=== PATIENT | female | born 2000 | race Caucasian/White ===

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

== ENCOUNTER → 2018-02-21 | Outpatient (REF) | payer OTHER ==
[2018-02-21 22:32] LABS: CHLAMYDIA DNA AMPLIFICATION NEGATIVE (NEGATIVE); GC DNA AMPLIFICATION NEGATIVE (NEGATIVE)
== END ==
LOC: M SFHCLERA 16:31
DX: R30.0 Dysuria (principal); N89.8 Other specified noninflammatory disorders of vagina

== ENCOUNTER 2019-02-25 22:08 | Emergency (ER) | payer OTHER ==
[~2019-02-25] VITALS: Ht 170.2 cm; Wt 72.7 kg
[2019-02-25 22:08] VITALS: BP 137/87
[~2019-02-25 22:08] MED LIST: CLINDAMYCIN; COLA100C5 PO; FLUC150T; MIRA3350 PO
== END 2019-02-26 00:02 | disposition home or self-care (01) ==
LOC: M ED 22:08
DX: S01.511A Laceration without foreign body of lip, initial encounter (principal); W51.XXXA Accidental striking against or bumped into by another person, initial encounter; Y92.099 Unspecified place in other non-institutional residence as the place of occurrence of the external cause; Y93.9 Activity, unspecified; Y99.9 Unspecified external cause status; Z88.0 Allergy status to penicillin

== ENCOUNTER 2019-03-04 02:53 | Day surgery (SDC) | payer OTHER ==
[~2019-03-04] VITALS: Ht 172.7 cm; Wt 72.7 kg
[2019-03-04 03:50] LABS: BASO # 0.1 10^3/uL (0.0-0.2); BASO % 0.3 % (0.0-1.0); EOS # 0.3 10^3/uL (0.0-0.5); EOS % 1.6 % (0.0-3.0); HEMATOCRIT 41.3 % (36.0-47.0); HEMOGLOBIN 13.4 g/dl (12.0-15.5); LYMPH # 3.4 10^3/uL (1.5-5.0); LYMPH % 21.5 % (24.0-44.0); MEAN CORPUSCULAR HEMOGLOBIN 27.3 pg (27.0-33.0); MEAN CORPUSCULAR HGB CONC 32.4 g/dl (32.0-36.5); MEAN CORPUSCULAR VOLUME 84.1 fl (80.0-96.0); MONO # 1.3 10^3/uL (0.0-0.8); MONO % 8.1 % (0.0-5.0); NEUTROPHILS # 10.8 10^3/uL (1.5-8.5); NEUTROPHILS % 68.1 % (36.0-66.0); PLATELET COUNT, AUTOMATED 234 10^3/uL (150-450); RED BLOOD COUNT 4.91 10^6/uL (4.00-5.40); WHITE BLOOD COUNT 15.9 10^3/uL (4.0-10.0)
[2019-03-04 04:22] LABS: ALBUMIN 3.5 GM/DL (3.2-5.2); ALT/SGPT 38 U/L (12-78); BILIRUBIN,DIRECT < 0.1 MG/DL (0.0-0.2); BILIRUBIN,TOTAL 0.2 MG/DL (0.2-1.0); BLOOD UREA NITROGEN 12 MG/DL (7-18); CALCIUM LEVEL 8.7 MG/DL (8.5-10.1); CARBON DIOXIDE LEVEL 27 MEQ/L (21-32); CHLORIDE LEVEL 107 MEQ/L (98-107); CREATININE FOR GFR 0.73 MG/DL (0.55-1.30); GLOMERULAR FILTRATION RATE > 60.0 (>60); GLUCOSE, FASTING 93 MG/DL (70-100); LIPASE 128 U/L (73-393); SODIUM LEVEL 143 MEQ/L (136-145); TOTAL PROTEIN 7.2 GM/DL (6.4-8.2)
[2019-03-04 04:44] LABS: APPEARANCE, URINE CLEAR (CLEAR); BACTERIA, URINE AUTO NEGATIVE (NEGATIVE); BILIRUBIN, URINE AUTO NEGATIVE (NEGATIVE); BLOOD, URINE BLOOD 1+ (NEGATIVE); COLOR, URINE YELLOW (YELLOW); GLUCOSE, URINE (UA) AUTO NEGATIVE (NEGATIVE); KETONE, URINE AUTO NEGATIVE (NEGATIVE); LEUKOCYTE ESTERASE, URINE AUTO TRACE (NEGATIVE); NITRITE, URINE AUTO NEGATIVE (NEGATIVE); PROTEIN, URINE AUTO NEGATIVE (NEGATIVE); RBC, URINE AUTO 2 /HPF (0-3); SPECIFIC GRAVITY URINE AUTO 1.016 (1.002-1.035); SQUAMOUS EPITHELIAL CELL UR AU 0 /HPF (0-6); UROBILINOGEN, URINE AUTO 0.2 mg/dL (0.0-2.0); WBC, URINE AUTO 2 /HPF (0-3)
[2019-03-04] MEDS ORDERED: METOCLOPRAMIDE INJ 10MG/2ML VIAL (J2765) IV ONE (05:00)
[2019-03-04] MEDS ORDERED: NS 1,000 ML IV ONE (05:00)
[2019-03-04] MEDS ORDERED: MORPHINE 4 MG/ML 1ML VIAL/SYRINGE (J2270) IV ONE (05:00)
[2019-03-04 05:02] LABS: HCG, SERUM QUALITATIVE NEGATIVE (NEGATIVE)
[2019-03-04] MEDS ORDERED: ISOVUE-370 76% 100ML VIAL (Q9967) As Ordered ONE (05:11)
--- NOTE | 2019-03-04 05:57 | REPVR ---
PROCEDURE INFORMATION: Exam: CT Abdomen And Pelvis With Contrast Exam date and time: 03/04/2019 5:24 AM Age: 19 years old Clinical history: Abdominal pain; Generalized TECHNIQUE: Imaging protocol: Computed tomography of the abdomen and pelvis with intravenous contrast. Radiation optimization: All CT scans at this facility use at least one of these dose optimization techniques: automated exposure control; mA and/or kV adjustment per patient size (includes targeted exams where dose is matched to clinical indication); or iterative reconstruction. Contrast material: ISOVUE 370; Contrast volume: 100 ml; Contrast route: IV; COMPARISON: CT ABD/PEL W/IV ORAL CONTRAS 12/22/2017 2:21 AM FINDINGS: Lungs: The visualized portions of the lung bases are normal. Liver: There are no focal liver lesions present. Gallbladder and bile ducts: The gallbladder appears partially contracted. No stones are identified. No biliary ductal dilation is seen. Pancreas: The pancreas is normal with no ductal dilation. Spleen: The spleen is normal. Adrenals: The adrenal glands are normal. Kidneys and ureters: The kidneys are unremarkable. There are no ureteral stones or hydronephrosis. Stomach and bowel: There is no dilation or thickening of the colon. The small bowel appears unremarkable. Appendix: The appendix is mildly dilated measuring 10 mm in diameter toward its tip. The wall appears hyperenhancing and thickened and there is mild adjacent stranding. The appendix is larger than on the prior exam where it measured 7 mm at the tip. Intraperitoneal space: There is a small amount of free fluid in the pelvis, measuring simple fluid density. There is no free intraperitoneal air. Vasculature: No aortic aneurysm. Lymph nodes: There are several enlarged lymph nodes in the right lower quadrant, but they are smaller than on the prior exam. Bladder: The bladder is mostly collapsed. No bladder stones are identified. Reproductive: The uterus is again retroverted and appears otherwise unremarkable. There is a corpus luteum in the left ovary. Bones/joints: No suspicious osseous lesions. No acute fractures or dislocations. Soft tissues: Unremarkable. IMPRESSION: 1. Enlarged, thickened and hyperenhancing appendix with mild adjacent stranding, consistent with acute appendicitis. No evidence of abscess or perforation. 2. Small amount of nonspecific free fluid in the pelvis which can be physiologic in a female patient of this age. Electronically signed by: Christen Borja On 03/04/2019 05:56:58 AM
[2019-03-04] MEDS ORDERED: CIPROFLOXACIN 400 MG in IV 1 EA IV ONE (06:30)
[2019-03-04] MEDS ORDERED: metroNIDAZOLE 500 MG in IV 1 EA IV ONE (06:30)
[2019-03-04] MEDS ORDERED: KETOROLAC 30 MG/ML VIAL (J1885) IV PRN ×2 (09:15→13:30)
[2019-03-04] MEDS ORDERED: ONDANSETRON 4MG/2ML VIAL (J2405) IV PRN ×2 (09:15→13:30)
[2019-03-04] MEDS ORDERED: MORPHINE 2 MG/ML 1ML VIAL (J2270) IV PRN (09:15)
[2019-03-04] MEDS ORDERED: BUPIVACAINE HCL 0.25% 30 ML VIAL As Ordered ONE (09:59)
[2019-03-04] MEDS: LR 1,000 ML IV SCH ×2 (10:12→18:00)
[2019-03-04] MEDS ORDERED: LIDOCAINE 2% INJ 100 MG/5 ML SDV (FOR ANES.) As Ordered ONE (10:42)
[2019-03-04] MEDS ORDERED: ROCURONIUM BROMIDE 50 MG/5 ML VIAL As Ordered ONE (10:42)
[2019-03-04] MEDS ORDERED: fentaNYL 100 MCG/2 ML INJECTION (J3010) As Ordered ONE ×2 (10:42→13:17)
[2019-03-04] MEDS ORDERED: PROPOFOL 200 MG/20 ML VIAL As Ordered ONE (10:42)
[2019-03-04] MEDS ORDERED: MIDAZOLAM INJ 2 MG/2 ML VIAL (J2250) As Ordered ONE (10:43)
[2019-03-04] MEDS ORDERED: dexameTHASONE 4 MG/ML 1ML VIAL (J1100) As Ordered ONE (11:40)
[2019-03-04] MEDS ORDERED: ACETAMINOPHEN 1000MG 100ML IV BTL (OFIRMEV) (J0131 PER 10MG) As Ordered ONE (11:48)
[2019-03-04] MEDS ORDERED: ONDANSETRON 4MG/2ML VIAL (J2405) As Ordered ONE (11:48)
[2019-03-04] MEDS ORDERED: KETOROLAC 60 MG/2 ML VIAL (J1885) As Ordered ONE (11:48)
[2019-03-04] MEDS ORDERED: SUGAMMADEX SODIUM 500 MG/5 ML VIAL (BRIDION) As Ordered ONE (12:31)
[2019-03-04] MEDS ORDERED: ACETAMINOPHEN TAB 650MG DOSE (2X325MG) PO PRN (13:15)
[2019-03-04] MEDS ORDERED: IBUPROFEN 600 MG TAB PO PRN (13:15)
[2019-03-04] MEDS ORDERED: PERCOCET 5MG/325MG TAB As Ordered ONE (13:17)
[2019-03-04] MEDS: fentaNYL 100 MCG/2 ML INJECTION (J3010) IV PRN ×3 (13:19→13:29)
[2019-03-04] MEDS ORDERED: PERCOCET 5MG/325MG TAB PO PRN (13:30)
[2019-03-04] MEDS ORDERED: LR 1,000 ML IV SCH (13:30)
[2019-03-04] MEDS ORDERED: METOCLOPRAMIDE INJ 10MG/2ML VIAL (J2765) IV PRN (13:30)
[2019-03-04 14:00] VITALS: BP 120/75
[2019-03-04 14:30] VITALS: BP 125/72
[2019-03-04 15:30] VITALS: BP 121/70
[2019-03-04 16:30] VITALS: BP 125/68
[2019-03-04] MEDS: NORCO, ANEXSIA 5/325MG TABLET (HYDROcodone/ACETAMINOPHEN) PO PRN (18:06)
[2019-03-04 20:00] VITALS: BP 115/69
[2019-03-05] VITALS: BP 119/67
[2019-03-05] MEDS: NORCO, ANEXSIA 5/325MG TABLET (HYDROcodone/ACETAMINOPHEN) PO PRN ×3 (00:04→08:43)
[2019-03-05 04:00] VITALS: BP 123/70
[2019-03-05 08:00] VITALS: BP 116/76
[2019-03-05] MEDS ORDERED: NORC1TAB7 PO (09:12)
--- NOTE | 2019-03-06 08:48 | RO ---
DATE OF PROCEDURE: 03/04/2019 PREOPERATIVE DIAGNOSIS: Acute appendicitis POSTOPERATIVE DIAGNOSIS: Acute appendicitis. PROCEDURE PERFORMED: Laparoscopic appendectomy. SURGEON: Dr. Rivas Inman STORE RECEIVING SPECIALIST: ANESTHESIA: General. INDICATIONS FOR PROCEDURE: The patient is a 19-year-old woman who presented to the emergency department with a 1-day history of abdominal pain becoming localized to the right lower quadrant. She had a moderately elevated white blood cell count and a CT scan was obtained which showed some mild dilation and thickening of the appendix. Her findings were felt to be consistent with acute appendicitis and she is now for laparoscopic appendectomy. OPERATIVE PROCEDURE: The patient was brought to the operating room and placed on the table in a supine position. She was placed under general endotracheal anesthesia. The patient's abdomen was prepped and draped in a sterile fashion. 0.25% Marcaine was infiltrated at each of the trocar sites. A short supraumbilical transverse incision was made and deepened through the abundant subcutaneous fat. A Veress needle was inserted and after a positive hanging drop test the abdomen was inflated with carbon dioxide gas. A 5 mm trocar was placed through the fascia at the midline and the camera was inserted. An initial inspection showed a normal-appearing liver and gallbladder. Small and large bowel was seen and appeared normal. The patient was tilted slightly to a Trendelenburg position and rolled slightly to the left. A second 5 mm trocar was placed in the left abdomen. A third 5 mm port was placed in the left lower quadrant. The supraumbilical 5 mm port was converted to an 11 mm trocar. Inspection of the right lower quadrant revealed the tip of the appendix protruding up lateral to the cecum. The cecum was rolled medially and the appendix was clearly identified. The appendix appeared somewhat hyperemic and edematous. The appendix was grasped by the mesoappendix and elevated. The filmy tissues of the mesoappendix were divided using the hook cautery. Dissection revealed the appendicular artery and this was doubly clipped with hemoclips and divided. Dissection was carried down to expose the very base of the appendix where it met the cecum. The 45 mm endoscopic linear cutter stapler was utilized. This required converting the 11 mm port to a 12. A green staple load was used. This was placed across the juncture of the appendix and cecum and closed and fired. The appendix was placed in an Endopouch. Some small bleeding points on the staple line were controlled with judicious use of the cautery. The right lower quadrant was irrigated and inspected. There was no evidence of any ongoing bleeding. The patient was returned to a flat position. The abdomen was deflated and the trocars were all removed. The appendix was recovered through the supraumbilical site and sent for permanent pathology. The fascia was exposed at the supraumbilical site by opening the subcutaneous tissue slightly further and this fascial opening was closed with interrupted simple sutures of #2-0 Vicryl. The skin incisions were then all closed with buried sutures of #4-0 Vicryl and Steri-Strips. Additional local anesthesia was infiltrated, particularly at the supraumbilical site. Light dressings were applied. The patient tolerated the procedure well without apparent complication. She was awakened in the operating room, extubated and moved to the recovery room in stable condition.
--- NOTE | 2019-03-06 14:17 | IPN ---
DATE: 03/05/2019 HISTORY: The patient is now 1 day postop from a laparoscopic appendectomy for acute appendicitis. She has done well overnight. She has tolerated liquids and now regular food. She has been up to ambulate without difficulty and voiding and passing flatus. Vital signs show that she has been afebrile since surgery. Her pulse is in the 60s to low 80s this morning. Her blood pressure is good. Intake and output shows 2700 in yesterday with 1250 recorded out. She had 600 mL of urine output so far this morning. PHYSICAL EXAMINATION: The patient is lying quietly in the hospital bed. She is alert and oriented. Heart exam shows a regular rate and rhythm. The lungs are clear. The abdomen is flat. She has active bowel sounds. Her dressings are clean and dry. The abdomen is without undue tenderness. IMPRESSION: Doing well 1 day postop from a laparoscopic appendectomy for acute appendicitis. PLAN: The patient will be discharged home today. She was counseled that she can take a regular diet as tolerated. She can shower 24 hours after surgery. She should leave Steri-Strips in place until they come off on their own. She should avoid any strenuous physical activity for the next 2 weeks. She should contact my office for any problems. She should have a followup visit in my office in approximately 10 days. We discussed pain medication and management of her pain after discharge. I will send in a prescription to her selected pharmacy for six [place] tablets that she can use as necessary for severe pain. Otherwise, I have recommended she utilize [id number] pain medications as needed. JACOBO
== END 2019-03-05 10:50 | disposition home or self-care (01) ==
LOC: M ED 02:53 → M SDC 09:16 → M PED 13:55 → M SDC 03-05 10:50
PROVIDERS: ATTEND Surgery
DX: K35.80 Unspecified acute appendicitis (principal); Z88.0 Allergy status to penicillin
CPT/HCPCS: 36415; 44970; 74177; 80048; 80076; 81001; 83690; 84703; 85025; 87086; 88304; 88341; 88342; 96365; 96367; 96375; 99284; J0131; J0744; J1100; J1885; J2250; J2270; J2405; J2765; J3010; Q9967

== ENCOUNTER → 2019-06-01 | Outpatient (REF) | payer OTHER ==
[~2019-06-01] MED LIST changes: +NORC1TAB7 PO
[2019-06-01 21:38] LABS: CHLAMYDIA DNA AMPLIFICATION NEGATIVE (NEGATIVE); GC DNA AMPLIFICATION NEGATIVE (NEGATIVE)
== END ==
LOC: M SFHCLERA 15:56
PROVIDERS: ATTEND Nurse Practitioner Family
DX: N89.8 Other specified noninflammatory disorders of vagina (principal)
CPT/HCPCS: 81002; 81025; 87070; 87077; 87086; 87186; 87661; G0463